=== PATIENT | female | born 2000 | race Caucasian/White ===

== ENCOUNTER 2021-06-28 18:03 | Emergency (ER) | payer OTHER ==
[2021-06-28 18:23] VITALS: BP 134/68
[2021-06-28 20:02] LABS: BILIRUBIN,URINE NEGATIVE (NEGATIVE); GLUCOSE, URINE (UA) NEGATIVE (NEGATIVE); KETONES,URINE (UA) NEGATIVE (NEGATIVE); LEUKOCYTE ESTERASE, URINE SMALL (NEGATIVE); NITRITE,URINE NEGATIVE (NEGATIVE); OCCULT BLOOD,URINE SMALL (NEGATIVE); PH,URINE 6.5 PH (5.0-7.5); PROTEIN,URINE NEGATIVE (NEGATIVE); UROBILINOGEN,URINE 0.2 (NORMAL) E.U./dL (NORMAL)
[2021-06-28 20:04] LABS: CLARITY,URINE SL. CLOUDY (CLEAR); HCG UR QUAL NEGATIVE
[2021-06-28] MEDS ORDERED: KETOROLAC 30 MG/ML VIAL IM STA (20:13)
[2021-06-28] MEDS ORDERED: CEFPODOXIME PROXETIL 100 MG TABLET PO STA (20:13)
[2021-06-28] MEDS ORDERED: CIPROFLOXACIN 250 MG TABLET PO STA (20:15)
[2021-06-28 20:16] LABS: BACTERIA,URINE Rare /HPF (None Seen); RBC,URINE 0-5 /HPF (0-5); SQUAMOUS EPITHELIAL CELL,UR FEW Squamous (<= Few)
--- NOTE | 2021-06-28 20:17 | ED Physician Documentation ---
History of Present Illness - Stated complaint Stated Complaint: LT FLANK PX - Chief complaint Chief Complaint: UTI - History obtained from History obtained from: Patient - Additonal information Additional information: 20-year-old woman with history of pyelonephritis a few months ago presents with similar pain over the past 5 days, worst in the left flank, sharp, initially intermittent and progressing to constant pain over the past couple of days, associated with 1 or 2 episodes of dysuria this week. Patient is currently currently menstruating. Denies fever but does have some nausea. Denies ab dominal pain. Flank pain radiates to the shoulder and also downward to the lower back. denies increased frequency. pain is currently 6/ Review of Systems Constitutional: denies: Fever GI: reports: Nausea. denies: Abdominal Pain : reports: Dysuria Musculoskeletal: reports: Back pain PD PAST MEDICAL HISTORY - Present Medications Home Medications: Ambulatory Orders Medication Instructions Recorded Confirmed Ciprofloxacin HCl [Cipro] 500 mg PO BID #14 tablet 06/28/21 - Allergies Allergies/Adverse Reactions: Allergies Allergy/AdvReac Type Severity Reaction Status Date / Time Penicillins Allergy Rash Verified 06/28/21 18:23 PD ED PE NORMAL - Vitals Vital signs reviewed: Yes - General General: Alert and oriented X 3, No acute distress, Well developed/nourished - HEENT HEENT: Atraumatic, PERRL, EOMI - Neck Neck: Supple, no meningeal sign - Abdomen Abdomen: Non tender, Non distended - Back Back: Other (BL CVA TTP) - Derm Derm: Normal color, Warm and dry Results - Vitals Vitals: Vital Signs - 24 hr 06/28/21 18:20 Temperature 36.4 C L Heart Rate 85 Respiratory 16 Rate Blood Pressure 134/68 H O2 Saturation 97 Oxygen O2 Source Room air - Labs Labs: Laboratory Tests 06/28/21 19:45 Urine Color YELLOW Urine Clarity SL. CLOUDY Urine pH 6.5 Ur Specific [place] 1.010 Urine Protein NEGATIVE Urine Glucose (UA) NEGATIVE Urine Ketones NEGATIVE Urine Occult Blood SMALL H Urine Nitrite NEGATIVE Urine Bilirubin NEGATIVE Urine Urobilinogen 0.2 (NORMAL) Ur Leukocyte Esterase SMALL H Ur Microscopic Review INDICATED Urine Culture Comments Not Reportable Urine HCG, Qual NEGATIVE PD MEDICAL DECISION MAKING - ED course ED course: 20-year-old woman presents with uncomplicated pyelonephritis. Prescription sent to pharmacy and first dose given here. Return precautions given. She will follow up with her primary doctor for referral to urology. Departure - Departure Disposition: 01 Home, Self Care Clinical Impression: UTI (urinary tract infection) Condition: Good Instructions: Pyelonephritis Dc Follow-Up: Sanaz Gonzalez MD [Physician No Access] - Prescriptions: Ciprofloxacin HCl [Cipro] 500 mg PO BID #14 tablet Comments: You were seen in the emergency department for flank pain and found to have a urinary tract infection. Take your antibiotics as prescribed and [place]. Return to the emergency department if you have any new or worsening symptoms or other concerns.
== END 2021-06-28 20:51 | disposition home or self-care (01) ==
LOC: ED 18:03
DX: N12 Tubulo-interstitial nephritis, not specified as acute or chronic (principal)
CPT/HCPCS: 81001; 81025; 87077; 87086; 87181; 96372; 99283; 99284; A9270; 81003